=== PATIENT | female | born 1975 | race Caucasian/White ===

== ENCOUNTER → 2018-10-04 | Outpatient (CLI) | payer OTHER ==
[2018-10-04 16:39] LABS: ABSOLUTE BASOPHILS # (AUTO) 0.1 10^3/uL (0.0-0.2); ABSOLUTE EOSINOPHILS # (AUTO) 0.4 10^3/uL (0.0-0.6); ABSOLUTE LYMPHOCYTES (AUTO) 2.4 10^3/uL (0.5-4.7); ABSOLUTE MONOCYTES (AUTO) 0.8 10^3/uL (0.1-1.4); BASOPHILS % (AUTO) 0.8 % (0-2); EOSINOPHILS % (AUTO) 4.9 % (0-6); HEMATOCRIT 36.9 % (36.0-47.0); HEMOGLOBIN 12.3 g/dL (12.0-15.5); LYMPHOCYTES % (AUTO) 31.7 % (13-45); MEAN CORPUSCULAR HEMOGLOBIN 30.1 pg (27.0-33.4); MEAN CORPUSCULAR HGB CONC 33.2 g/dL (32.0-36.0); MEAN CORPUSCULAR VOLUME 91 fl (80-97); MONOCYTES % (AUTO) 10.1 % (3-13); PLATELET COUNT 533 10^3/uL (150-450); RED BLOOD COUNT 4.07 10^6/uL (3.72-5.28); RED CELL DISTRIBUTION WIDTH 12.7 % (11.5-14.0); SEGMENTED NEUTROPHILS % (AUTO) 52.5 % (42-78); TOTAL CELLS COUNTED % (AUTO) 100 %; WHITE BLOOD COUNT 7.7 10^3/uL (4.0-10.5)
[2018-10-04 17:21] LABS: ERYTHROCYTE SEDIMENTATION RATE 61 mm/hr (0-20)
[2018-10-04 17:54] LABS: ALBUMIN 3.5 g/dL (3.5-5.0); ALKALINE PHOSPHATASE 128 U/L (38-126); ASPARTATE AMINO TRANSFERASE 62 U/L (14-36); BILIRUBIN,DIRECT 0.3 mg/dL (0.0-0.4); BILIRUBIN,TOTAL 0.3 mg/dL (0.2-1.3); C-REACTIVE PROTEIN 58.7 mg/L (<10.0); TOTAL PROTEIN 6.4 g/dL (6.3-8.2)
[2018-10-06 08:36] LABS: HEPATITS B SURFACE ANTIGEN Negative (Negative)
[2018-10-06 18:45] LABS: HEPATITIS C VIRUS ANTIBODY <0.1 s/co ratio (0.0-0.9)
== END ==
LOC: OD 16:07
PROVIDERS: ATTEND Internal Medicine Gastroenterology
DX: K51.919 Ulcerative colitis, unspecified with unspecified complications (principal)
CPT/HCPCS: 36415; 80074; 85025; 85652; 86140; 87070

== ENCOUNTER 2018-10-14 08:48 | Day surgery (SDC) | payer OTHER ==
[~2018-10-14 08:48] MED LIST: PROPOFOL INJ 200 MG/20 ML VIAL IV ONE
[2018-10-14 11:01] VITALS: BP 120/72
--- NOTE | 2018-10-14 13:02 | Operative Report ---
Operative Report DATE OF SURGERY: 10/14/18 Operative Report: The risks, benefits and alternatives of the procedure including the risk of bleeding, perforation requiring surgery have been explained to the patient in detail and informed consent has been obtained. The patient is taken back to the endoscopy suite and placed in the left, lateral decubital position. Timeout was called. Propofol medication is administered. Rectal examination is done which did not reveal any masses, tears or fissures. An Olympus videoscope was introduced into the patient's rectum. The scope was then carefully advanced all the way to the cecum. The cecum was identified by the usual anatomical landmarks including the ileocecal valve as well as the appendiceal office. Photodocumentation is obtained. The scope was then sequentially pulled back via the various segments of the colon including the ascending colon, hepatic flexure , transverse colon, splenic flexure, descending colon and finally into the rectosigmoid portions of the colon. Retroflexion maneuvers performed. PREOPERATIVE DIAGNOSIS: History of ulcerative colitis POSTOPERATIVE DIAGNOSIS: Pancolitis noted status post biopsy OPERATION: Colonoscopy with biopsy SURGEON: LONDON WINTERS ANESTHESIA: LMAC TISSUE REMOVED OR ALTERED: As noted above COMPLICATIONS: None. ESTIMATED BLOOD LOSS: None. INTRAOPERATIVE FINDINGS: As noted above. PROCEDURE: Patient tolerated the procedure well. No immediate postprocedure complications are noted. Patient is discharged in good condition. Discharge date 10/14/2018. Discharge diet: Regular. Discharge activity: Regular. 2 to 3-week follow-up to discuss findings. Patient is instructed to call the office or proceed to the emergency room should there be any further problems or questions. Wait on the pathology.
== END 2018-10-14 10:59 | disposition home or self-care (01) ==
LOC: END 08:48
PROVIDERS: ATTEND Internal Medicine Gastroenterology
DX: K52.9 Noninfective gastroenteritis and colitis, unspecified (principal); Z79.82 Long term (current) use of aspirin; Z88.5 Allergy status to narcotic agent
CPT/HCPCS: 88305 ×2; J2704

== ENCOUNTER 2018-12-23 09:40 | Day surgery (SDC) | payer OTHER ==
[2018-12-23 11:57] VITALS: BP 111/76
--- NOTE | 2018-12-23 12:56 | Operative Report ---
Operative Report DATE OF SURGERY: 12/23/18 Operative Report: The risks benefits and alternatives of the procedure explained to the patient in detail and informed consent is obtained.A GIF Olympus video scope was inserted into the patient's mouth and hypopharynx, the esophagus is identified intubated and insufflated, the scope was then advanced through the esophagus stomach and duodenum, retroflexion maneuver is done ,the esophagus stomach and first and second portions of the duodenum examined. PREOPERATIVE DIAGNOSIS: Dyspepsia epigastric pain POSTOPERATIVE DIAGNOSIS: Gastritis status post biopsy without Helicobacter pylori. Duodenitis status post biopsy rule out celiac disease OPERATION: EGD with biopsy SURGEON: LONDON WINTERS ANESTHESIA: LMAC TISSUE REMOVED OR ALTERED: As noted above. COMPLICATIONS: None. ESTIMATED BLOOD LOSS: None. INTRAOPERATIVE FINDINGS: As noted above. PROCEDURE: Patient tolerated the procedure well. No immediate postprocedure complications are noted. Patient is discharged in good condition. Discharge date 12/23/2018. Discharge diet: Regular. Discharge activity: Regular. 2 to 3-week follow-up to discuss findings. Patient is instructed to call the office or proceed to the emergency room should there be any further problems or questions. Wait on the pathology.
== END 2018-12-23 11:50 | disposition home or self-care (01) ==
LOC: END 09:40
PROVIDERS: ATTEND Internal Medicine Gastroenterology
DX: K29.50 Unspecified chronic gastritis without bleeding (principal); Z79.899 Other long term (current) drug therapy; K51.00 Ulcerative (chronic) pancolitis without complications; K29.80 Duodenitis without bleeding
CPT/HCPCS: 43239; 88305 ×2; 00731; J2704; 731

== ENCOUNTER → 2019-01-03 | Outpatient (CLI) | payer OTHER | LOC: LAB 10:30 | PROVIDERS: ATTEND Internal Medicine Gastroenterology | DX: K51.80 Other ulcerative colitis without complications (principal) ==